=== PATIENT | female | born 1965 | race Caucasian/White ===

== ENCOUNTER 2019-09-10 14:29 | Inpatient (IN) ==
[2019-09-10] MEDS ORDERED: Isovue-370 500 ML BOTTLE IVP ONE (14:49)
[2019-09-10 15:27] LABS: VBG HCO3 26 mEq/L (21-27); VBG PCO2 53 mmHg (41-51); VBG PO2 55 mmHg (25-50)
[2019-09-10 15:47] LABS: Basophils # 0.1 K/mcL (0.0-0.2); Basophils % 0.5 %; Eosinophils # 0.2 K/mcL (0.0-0.6); Eosinophils % 1.7 %; Hemoglobin 11.9 g/dL (11.5-15.4); Lymphocytes # 3.6 K/mcL (0.6-4.6); Lymphocytes % 33.3 %; Mean Corpuscular HGB Conc 32.2 g/dL (31.6-35.5); Mean Corpuscular Hemoglobin 29.2 pg (28.0-33.3); Mean Corpuscular Volume 90.9 fL (83.0-100.0); Mean Platelet Volume 10.8 fL (9.4-12.4); Monocytes # 0.5 K/mcL (0.0-1.3); Monocytes % 4.8 %; Neutrophils # 6.3 K/mcL (1.6-8.9); Nucleated Red Blood Cells 0.2 /100 WBC (0); Platelet Count 186 K/mcL (140-400); Red Blood Count 4.07 M/mcL (3.82-4.97); Red Cell Distribution Width 14.9 % (11.5-14.5); Segmented Neutrophils % 58.7 %; White Blood Count 10.8 K/mcL (4.3-11.1)
[2019-09-10 16:10] LABS: Alanine Aminotransferase 25 Units/L (7-52); Albumin 3.4 g/dL (3.5-5.7); Albumin/Globulin Ratio 0.9 (1.1-2.2); Alkaline Phosphatase 119 Units/L (34-104); Aspartate Amino Transferase 41 Units/L (13-39); BUN/Creatinine Ratio 14 (6-26); Bilirubin,Direct 0.2 mg/dL (0.0-0.2); Bilirubin,Indirect 0.3 mg/dL (0.0-1.0); Bilirubin,Total 0.5 mg/dL (0.3-1.0); Blood Urea Nitrogen 11 mg/dL (6-20); Calcium 8.4 mg/dL (8.6-10.3); Carbon Dioxide 23 mEq/L (23-29); Chloride 110 mEq/L (98-107); Globulin 3.8 g/dL (2.4-3.5); Glucose 120 mg/dL (70-105); Osmolality,Calculated 295 (280-300); Sodium 142 mEq/L (136-145); Total Protein 7.2 g/dL (6.4-8.9); eGFR For African Americans > 60 (> 60); eGFR For Non-African Americans > 60 (> 60)
[2019-09-10 16:16] LABS: Troponin I 0.04 ng/mL (< 0.04)
[2019-09-10] MEDS ORDERED: Potassium Chloride 40 MEQ, Lidocaine 1% 2 ML in 0.9 % Sodium Chloride 500 ML IVPB ONE (16:31)
[2019-09-10 16:59] LABS: Thyroid Stimulating Hormone 0.618 mcIU/mL (0.340-5.600)
[2019-09-10] MEDS ORDERED: Furosemide 40 MG/4 ML VIAL IVP ONE (17:33)
[2019-09-10] MEDS ORDERED: Azithromycin 500 MG in 0.9 % Sodium Chloride 250 ML IVPB ONE (17:34)
[2019-09-10] MEDS ORDERED: cefTRIAXone 1,000 MG in Water for inj. (sterile) 10 ML IVP ONE (17:34)
[2019-09-10] MEDS ORDERED: NON-FORMULARY MEDICATION 1 EACH EACH (Oxycodone Hcl 10 MG) PO PRN (20:06)
[2019-09-10] MEDS ORDERED: Lactulose Oral Soln 20 GM/30 ML UDC PO PRN (20:06)
[2019-09-10] MEDS ORDERED: Naloxone 0.4 MG/ML INJ IVP PRN (20:07)
[2019-09-10 21:15] LABS: Bilirubin,Urine Negative (Negative); Blood,Urine Negative (Negative); Clarity,Urine Clear (Clear); Color,Urine Colorless (Yellow); Glucose,Urine (UA) Normal (Normal); Ketones,Urine Negative (Negative); Leukocyte Esterase,Urine Negative (Negative); Nitrite,Urine Negative (Negative); Protein,Urine Negative (Neg-Trace); Urobilinogen,Urine Normal (Normal)
[2019-09-10] MEDS: Potassium Chloride Elixir 20 MEQ/15 ML UDC PO SCH (21:21)
[2019-09-10] MEDS: Baclofen 10 MG TABLET PO SCH ×2 (21:22→21:26)
[2019-09-10] MEDS: Gabapentin 400 MG CAPSULE PO SCH (21:23)
[2019-09-10] MEDS: levETIRAcetam 250 MG TABLET PO SCH (21:23)
[2019-09-10] MEDS: Furosemide 20 MG/2 ML VIAL IVP SCH (21:24)
[2019-09-10 21:26] LABS: Amphetamine Screen,Urine Negative ng/mL (Cutoff=1000); Barbiturate Screen,Urine Negative ng/mL (Cutoff=200); Benzodiazepines Screen,Urine Negative ng/mL (Cutoff=200); Cannabinoid Screen,Urine Negative ng/mL (Cutoff = 50); Cocaine Screen,Urine Negative ng/mL (Cutoff= 300); Opiate Screen,Urine Negative ng/mL (Cutoff=300); Phencyclidine Screen,Urine Negative ng/mL (Cutoff=25)
[2019-09-10] MEDS: *HR* OxyCODONE Immed Rel 5 MG TABLET PO PRN (22:44)
[2019-09-11 03:16] LABS: Basophils # 0.1 K/mcL (0.0-0.2); Basophils % 0.6 %; Eosinophils # 0.4 K/mcL (0.0-0.6); Eosinophils % 4.4 %; Hematocrit 31.7 % (35.3-44.9); Immature Granulocytes % 1.3 % (0-4); Lymphocytes # 3.9 K/mcL (0.6-4.6); Lymphocytes % 38.7 %; Mean Corpuscular HGB Conc 31.5 g/dL (31.6-35.5); Mean Corpuscular Hemoglobin 28.2 pg (28.0-33.3); Mean Corpuscular Volume 89.5 fL (83.0-100.0); Mean Platelet Volume 10.7 fL (9.4-12.4); Monocytes # 0.7 K/mcL (0.0-1.3); Monocytes % 6.5 %; Neutrophils # 4.8 K/mcL (1.6-8.9); Platelet Count 171 K/mcL (140-400); Red Blood Count 3.54 M/mcL (3.82-4.97); Red Cell Distribution Width 14.6 % (11.5-14.5); Segmented Neutrophils % 48.5 %; White Blood Count 9.9 K/mcL (4.3-11.1)
[2019-09-11 03:17] LABS: Alanine Aminotransferase 18 Units/L (7-52); Albumin/Globulin Ratio 0.9 (1.1-2.2); Alkaline Phosphatase 96 Units/L (34-104); Aspartate Amino Transferase 28 Units/L (13-39); BUN/Creatinine Ratio 13 (6-26); Bilirubin,Total 0.5 mg/dL (0.3-1.0); Blood Urea Nitrogen 11 mg/dL (6-20); Carbon Dioxide 24 mEq/L (23-29); Chloride 111 mEq/L (98-107); Chol/HDL Ratio 3.9 (0-4.9); Cholesterol 66 mg/dL (< 200); Globulin 3.2 g/dL (2.4-3.5); Glucose 87 mg/dL (70-105); HDL Cholesterol 17 mg/dL (40-59); LDL Cholesterol,Calculated 33 mg/dL (0-99); Magnesium 1.5 mg/dL (1.6-2.6); Osmolality,Calculated 293 (280-300); Phosphorous 3.8 mg/dL (2.7-4.5); Potassium 3.7 mEq/L (3.5-5.1); Sodium 142 mEq/L (136-145); Total Protein 6.2 g/dL (6.4-8.9); Triglycerides 82 mg/dL (< 150); eGFR For African Americans > 60 (> 60); eGFR For Non-African Americans > 60 (> 60)
[2019-09-11 03:32] LABS: INR 1.1; Prothrombin Time 12.3 Seconds (9.4-12.1)
[2019-09-11] MEDS: *HR* OxyCODONE Immed Rel 5 MG TABLET PO PRN ×3 (06:00→18:59)
[2019-09-11] MEDS: Azithromycin 250 MG TABLET PO SCH (08:36)
[2019-09-11] MEDS: levETIRAcetam 250 MG TABLET PO SCH ×2 (08:36→20:20)
[2019-09-11] MEDS: Furosemide 20 MG/2 ML VIAL IVP SCH ×2 (08:36→20:16)
[2019-09-11] MEDS: Potassium Chloride Elixir 20 MEQ/15 ML UDC PO SCH (08:36)
[2019-09-11] MEDS: cefTRIAXone 1,000 MG in Water for inj. (sterile) 10 ML IVP SCH (08:36)
[2019-09-11] MEDS: Aspirin Enteric Coated 81 MG Tablet PO SCH (08:36)
[2019-09-11] MEDS: Gabapentin 400 MG CAPSULE PO SCH ×4 (08:36→20:20)
[2019-09-11] MEDS: Baclofen 10 MG TABLET PO SCH ×2 (08:37→20:19)
[2019-09-11] MEDS: *HR* Promethazine 25 MG/ML VIAL IVP PRN (17:37)
[2019-09-11] MEDS: *HR* Heparin 5,000 UNIT/ML VIAL SQ SCH (17:38)
[2019-09-12 04:20] LABS: Basophils # 0.1 K/mcL (0.0-0.2); Basophils % 0.8 %; Eosinophils # 0.4 K/mcL (0.0-0.6); Eosinophils % 4.1 %; Hemoglobin 10.6 g/dL (11.5-15.4); Immature Granulocytes % 1.5 % (0-4); Lymphocytes # 4.6 K/mcL (0.6-4.6); Mean Corpuscular HGB Conc 32.1 g/dL (31.6-35.5); Mean Corpuscular Hemoglobin 28.2 pg (28.0-33.3); Mean Corpuscular Volume 87.8 fL (83.0-100.0); Mean Platelet Volume 10.3 fL (9.4-12.4); Monocytes # 0.7 K/mcL (0.0-1.3); Neutrophils # 3.9 K/mcL (1.6-8.9); Nucleated Red Blood Cells 0.3 /100 WBC (0); Platelet Count 190 K/mcL (140-400); Red Blood Count 3.76 M/mcL (3.82-4.97); Red Cell Distribution Width 14.6 % (11.5-14.5); Segmented Neutrophils % 39.6 %; White Blood Count 9.8 K/mcL (4.3-11.1)
[2019-09-12 04:37] LABS: BUN/Creatinine Ratio 16 (6-26); Blood Urea Nitrogen 11 mg/dL (6-20); Calcium 8.1 mg/dL (8.6-10.3); Carbon Dioxide 27 mEq/L (23-29); Chloride 104 mEq/L (98-107); Glucose 106 mg/dL (70-105); Osmolality,Calculated 282 (280-300); Potassium 3.5 mEq/L (3.5-5.1); Sodium 136 mEq/L (136-145); eGFR For African Americans > 60 (> 60); eGFR For Non-African Americans > 60 (> 60)
[2019-09-12 04:43] LABS: Platelet Estimate Normal (Normal); Reactive Lymphocytes Present (Not Present)
[2019-09-12] MEDS: *HR* Heparin 5,000 UNIT/ML VIAL SQ SCH ×2 (06:08→16:18)
[2019-09-12] MEDS: Azithromycin 250 MG TABLET PO SCH (08:36)
[2019-09-12] MEDS: Gabapentin 400 MG CAPSULE PO SCH ×4 (08:36→20:26)
[2019-09-12] MEDS: Baclofen 10 MG TABLET PO SCH ×2 (08:36→20:25)
[2019-09-12] MEDS: levETIRAcetam 250 MG TABLET PO SCH ×2 (08:37→20:25)
[2019-09-12] MEDS: Aspirin Enteric Coated 81 MG Tablet PO SCH (08:37)
[2019-09-12] MEDS: Potassium Chloride Elixir 20 MEQ/15 ML UDC PO SCH (08:37)
[2019-09-12] MEDS: Furosemide 20 MG/2 ML VIAL IVP SCH (08:37)
[2019-09-12] MEDS: cefTRIAXone 1,000 MG in Water for inj. (sterile) 10 ML IVP SCH (08:38)
[2019-09-12] MEDS: *HR* OxyCODONE Immed Rel 5 MG TABLET PO PRN ×2 (09:16→16:18)
[2019-09-12] MEDS: Furosemide 40 MG TABLET PO SCH (16:17)
[2019-09-12] MEDS: Cefdinir 300 MG CAPSULE PO SCH (20:25)
[2019-09-12] MEDS: *HR* Promethazine 25 MG/ML VIAL IVP PRN (21:26)
[2019-09-13] MEDS: *HR* Promethazine 25 MG/ML VIAL IVP PRN (01:44)
[2019-09-13] MEDS: *HR* Heparin 5,000 UNIT/ML VIAL SQ SCH ×2 (05:49→16:12)
[2019-09-13] MEDS: Azithromycin 250 MG TABLET PO SCH (08:19)
[2019-09-13] MEDS: Potassium Chloride Elixir 20 MEQ/15 ML UDC PO SCH (08:19)
[2019-09-13] MEDS: Furosemide 40 MG TABLET PO SCH (08:19)
[2019-09-13] MEDS: Baclofen 10 MG TABLET PO SCH ×2 (08:19→20:54)
[2019-09-13] MEDS: Gabapentin 400 MG CAPSULE PO SCH ×4 (08:19→20:55)
[2019-09-13] MEDS: Cefdinir 300 MG CAPSULE PO SCH ×2 (08:19→20:54)
[2019-09-13] MEDS: levETIRAcetam 250 MG TABLET PO SCH ×2 (08:19→20:54)
[2019-09-13] MEDS: Aspirin Enteric Coated 81 MG Tablet PO SCH (08:19)
[2019-09-13] MEDS: *HR* OxyCODONE Immed Rel 5 MG TABLET PO PRN ×3 (08:54→23:28)
[2019-09-13] MEDS ORDERED: Perflutren Lipid Microsphere 1.3 ML in 0.9 % Sodium Chloride 8.7 ML IVP ONE (22:17)
[2019-09-14] MEDS: *HR* Heparin 5,000 UNIT/ML VIAL SQ SCH ×2 (05:31→17:36)
[2019-09-14] MEDS: levETIRAcetam 250 MG TABLET PO SCH ×2 (09:15→20:55)
[2019-09-14] MEDS: Gabapentin 400 MG CAPSULE PO SCH ×4 (09:16→20:55)
[2019-09-14] MEDS: Baclofen 10 MG TABLET PO SCH ×2 (09:16→20:55)
[2019-09-14] MEDS: Aspirin Enteric Coated 81 MG Tablet PO SCH (09:16)
[2019-09-14] MEDS: Furosemide 40 MG TABLET PO SCH (09:16)
[2019-09-14] MEDS: Azithromycin 250 MG TABLET PO SCH (09:16)
[2019-09-14] MEDS: Potassium Chloride Elixir 20 MEQ/15 ML UDC PO SCH (09:17)
[2019-09-14] MEDS: Cefdinir 300 MG CAPSULE PO SCH ×2 (09:24→20:55)
[2019-09-14] MEDS: *HR* OxyCODONE Immed Rel 5 MG TABLET PO PRN ×2 (09:24→17:43)
[2019-09-15] MEDS: *HR* OxyCODONE Immed Rel 5 MG TABLET PO PRN ×4 (00:22→21:15)
[2019-09-15] MEDS: *HR* Heparin 5,000 UNIT/ML VIAL SQ SCH ×2 (05:24→18:05)
[2019-09-15 07:25] LABS: Hematocrit 35.3 % (35.3-44.9); Mean Corpuscular HGB Conc 31.2 g/dL (31.6-35.5); Mean Corpuscular Hemoglobin 27.8 pg (28.0-33.3); Mean Corpuscular Volume 89.1 fL (83.0-100.0); Mean Platelet Volume 10.9 fL (9.4-12.4); Platelet Count 196 K/mcL (140-400); Red Blood Count 3.96 M/mcL (3.82-4.97); Red Cell Distribution Width 14.2 % (11.5-14.5); White Blood Count 7.5 K/mcL (4.3-11.1)
[2019-09-15 07:45] LABS: BUN/Creatinine Ratio 18 (6-26); Blood Urea Nitrogen 13 mg/dL (6-20); Carbon Dioxide 29 mEq/L (23-29); Chloride 101 mEq/L (98-107); Glucose 126 mg/dL (70-105); Osmolality,Calculated 286 (280-300); Potassium 3.6 mEq/L (3.5-5.1); Sodium 137 mEq/L (136-145); eGFR For African Americans > 60 (> 60); eGFR For Non-African Americans > 60 (> 60)
[2019-09-15] MEDS: levETIRAcetam 250 MG TABLET PO SCH ×2 (08:48→19:55)
[2019-09-15] MEDS: Gabapentin 400 MG CAPSULE PO SCH ×4 (08:48→19:51)
[2019-09-15] MEDS: Baclofen 10 MG TABLET PO SCH ×2 (08:48→19:51)
[2019-09-15] MEDS: Cefdinir 300 MG CAPSULE PO SCH ×2 (08:48→19:52)
[2019-09-15] MEDS: Furosemide 40 MG TABLET PO SCH (08:48)
[2019-09-15] MEDS: Aspirin Enteric Coated 81 MG Tablet PO SCH (08:48)
[2019-09-15] MEDS: Potassium Chloride Elixir 20 MEQ/15 ML UDC PO SCH (08:49)
[2019-09-16] MEDS: *HR* Heparin 5,000 UNIT/ML VIAL SQ SCH ×2 (05:28→18:05)
[2019-09-16] MEDS: *HR* OxyCODONE Immed Rel 5 MG TABLET PO PRN ×3 (05:28→18:12)
[2019-09-16] MEDS: Potassium Chloride Elixir 20 MEQ/15 ML UDC PO SCH (08:21)
[2019-09-16] MEDS: levETIRAcetam 250 MG TABLET PO SCH (08:22)
[2019-09-16] MEDS: Cefdinir 300 MG CAPSULE PO SCH (08:22)
[2019-09-16] MEDS: Aspirin Enteric Coated 81 MG Tablet PO SCH (08:22)
[2019-09-16] MEDS: Baclofen 10 MG TABLET PO SCH (08:22)
[2019-09-16] MEDS: Furosemide 40 MG TABLET PO SCH (08:23)
[2019-09-16] MEDS: Gabapentin 400 MG CAPSULE PO SCH ×3 (08:23→18:05)
[2019-09-16 15:53] VITALS: BP 111/76
== END 2019-09-16 18:28 | disposition home or self-care (01) | DRG 291 ==
LOC: 2NENU 14:29 → EMEROOARM 14:29 → SUATTDRO 18:20 → 2NENU 19:40 → 3BNU 09-13 18:27
PROVIDERS: ADMIT Pharmacist; ATTEND Internal Medicine